=== PATIENT | female | born 1975 | race African-American/Black ===

== ENCOUNTER 2022-06-26 04:34 | Day surgery (SDC) | payer OTHER ==
[2022-06-23 12:41] VITALS: BMI 28.3
[2022-06-26 06:30] VITALS: RESP 20
[2022-06-26] MEDS ORDERED: LIDOCAINE HCL 1%, 10 MG/ML (20ML VIAL) ONE (07:24)
[2022-06-26] MEDS ORDERED: BUPIVACAINE HCL/PF 0.5% (5MG/ML) 10 ML VIAL ONE (07:25)
[2022-06-26] MEDS ORDERED: MIDAZOLAM HCL 2 MG/2 ML SINGLE DOSE VIAL ONE (07:25)
[2022-06-26] MEDS ORDERED: PROPOFOL 40 ML ONE (07:25)
[2022-06-26] MEDS ORDERED: BUPIVACAINE HCL/PF 0.5% (5MG/ML) 10 ML VIAL IJ ONE (07:43)
[2022-06-26] MEDS ORDERED: LIDOCAINE HCL 1%, 10 MG/ML (20ML VIAL) INF ONE (07:43)
[2022-06-26] MEDS ORDERED: DEXAMETHASONE SOD PHOSPHATE 4 MG/1 ML VIAL ONE (07:44)
[2022-06-26] MEDS ORDERED: KETOROLAC TROMETHAMINE 30 MG/1 ML VIAL ONE (07:44)
[2022-06-26] MEDS ORDERED: ONDANSETRON 4 MG/2 ML VIAL ONE (07:44)
[2022-06-26] MEDS ORDERED: ceFAZolin SODIUM 1 GM VIAL ONE (07:44)
[2022-06-26] MEDS ORDERED: ceFAZolin SODIUM 1 GM VIAL IVPB ONE (07:50)
[2022-06-26] MEDS ORDERED: PROPOFOL 20 ML ONE (08:32)
[2022-06-26] MEDS ORDERED: ONDANSETRON 4 MG/2 ML VIAL IVPUSH PRN (08:50)
[2022-06-26] MEDS ORDERED: oxyCODONE HCL 5 MG TABLET PO PRN ×2 (08:50)
[2022-06-26] MEDS ORDERED: ACETAMINOPHEN 500 MG TABLET (FP) PO PRN (08:50)
[2022-06-26] MEDS ORDERED: LACTATED RINGERS SOLUTION 1,000 ML IV SCH (09:00)
[2022-06-26 12:28] VITALS: BP 94/59; PULSE 74; TEMP 97
== END 2022-06-26 11:45 | disposition home or self-care (01) ==
LOC: JASU-SURG 04:34
PROVIDERS: ATTEND Podiatrist Foot & Ankle Surgery
PROC: 0LBV0ZZ Excision of Right Foot Tendon, Open Approach (ICD-10-PCS; 2022-06-26)
PROC: 0LBS0ZZ Excision of Right Ankle Tendon, Open Approach (ICD-10-PCS; principal; 2022-06-26 07:57)
DX: M67.461 Ganglion, right knee (principal); M67.471 Ganglion, right ankle and foot
CPT/HCPCS: 88304-TC; 97116-GP